=== PATIENT | male | born 1970 | race Caucasian/White ===

== ENCOUNTER → 2025-03-05 08:55 | Outpatient (REF) | payer BC, SELFPAY | LOC: HWRAD 08:55 | PROVIDERS: ATTENDING PHYSICIAN Internal Medicine Rheumatology; FAMILY PHYSICIAN Family Medicine | DX: M13.0 Polyarthritis, unspecified (principal); M54.2 Cervicalgia; M54.50 Low back pain, unspecified | CPT/HCPCS: 72052; 72114; 72202; 73523 ==